=== PATIENT | female | born 1940 | race Caucasian/White ===

== ENCOUNTER → 2017-04-08 | Outpatient (CLI) | payer OTHER ==
[~2017-04-08] MED LIST: AMLO-110 PO; ASCO100061 PO; ASPI1TAB83 PO; CHOL100010 PO; LEVO75TA PO; METO-452 PO
== END | disposition home or self-care (01) ==
LOC: C.MAMM 07:59
PROVIDERS: ATTEND Family Medicine
DX: M85.88 Other specified disorders of bone density and structure, other site (principal); Z13.820 Encounter for screening for osteoporosis

== ENCOUNTER → 2017-04-09 | Outpatient (CLI) | payer OTHER ==
--- NOTE | 2017-04-09 11:00 | DIAGNOSTIC IMAGING REPORT ---
RIGHT HIP UNILATERAL 2 VIEWS CLINICAL HISTORY: M25.551 Right hip [id number] Right pain COMPARISON: None. DISCUSSION: The bones and joint spaces appear intact. There is no evidence of fracture, dislocation or bony disease. There is no evidence for soft tissue swelling. IMPRESSION: Negative study. Electronically signed by: Ag Douglas M.D. 04/09/2017 10:59 AM Dictated Date/Time: 04/09/2017 10:58 AM
--- NOTE | 2017-04-09 11:02 | DIAGNOSTIC IMAGING REPORT ---
SINGLE VIEW PELVIS CLINICAL HISTORY: Right hip pain. FINDINGS: An AP pelvic radiograph is obtained. No prior studies are available for comparison at the time of dictation. The skeletal structures are osteopenic. No fracture is identified in the hips or bony pelvis. The joint spaces of the hips appear maintained. Minimal sclerotic change is noted in the sacroiliac joints. Small enthesophytes arise from the anterior superior iliac spine bilaterally. The overlying soft tissues are normal as imaged. There is a nonobstructed abdominal bowel gas pattern. IMPRESSION: No acute abnormality. Electronically signed by: Andrea Berrios M.D. 04/09/2017 11:00 AM Dictated Date/Time: 04/09/2017 10:59 AM
== END | disposition home or self-care (01) ==
LOC: C.RADBC 10:30
PROVIDERS: ATTEND Family Medicine
DX: M25.551 Pain in right hip (principal)

== ENCOUNTER → 2017-07-25 | Outpatient (CLI) | payer OTHER, BC ==
[~2017-07-25] MED LIST changes: -METO-452 PO; +METO1TAB66 PO
[2017-07-25 17:46] LABS: BASO % 0.3 %; BASO ABS # 0.03 K/uL (0-0.2); COMPLETE YES; EOS % 3.7 %; HEMATOCRIT 39.6 % (37-47); IG% 0.2 %; LYMPH % 34.3 %; LYMPH ABS # 3.23 K/uL (1.2-3.4); MEAN CELL VOLUME 91.9 fL (80-100); MEAN CORPUSCULAR HEMOGLOBIN 30.6 pg (25-34); MEAN CORPUSCULAR HGB CONC 33.3 g/dl (32-36); MEAN PLATELET VOLUME 10.9 fL (7.4-10.4); MONO % 8.8 %; NEUT % 52.7 %; PLATELET COUNT 262 K/uL (130-400); RED BLOOD COUNT 4.31 M/uL (4.2-5.4); URINE APPEARANCE CLEAR (CLEAR); URINE BILIRUBIN NEG (NEG); URINE COLOR YELLOW; URINE EPITHELIAL CELL AUTO >30 /lpf (0-5); URINE NITRITE NEG (NEG); URINE SPECIFIC GRAVITY 1.029 (1.000-1.030); UROBILINOGEN NEG (NEG); WHITE BLOOD COUNT 9.43 K/uL (4.8-10.8)
[2017-07-25 17:54] LABS: MANUAL MICROSCOPIC REQUIRED? NO; REVIEW REQ? NO
[2017-07-25 18:04] LABS: ALT/SGPT 56 U/L (12-78); AST/SGOT 47 U/L (15-37); BLOOD UREA NITROGEN 29 mg/dl (7-18); BUN/CREATININE RATIO 23.8 (10-20); CALCIUM 9.3 mg/dl (8.5-10.1); CARBON DIOXIDE 30 mmol/L (21-32); CHLORIDE 105 mmol/L (98-107); GLUCOSE 100 mg/dl (70-99); POTASSIUM 4.3 mmol/L (3.5-5.1); SODIUM 142 mmol/L (136-145)
[2017-07-25 18:14] LABS: ALB/GLOB RATIO 0.9 (0.9-2); ALKALINE PHOSPHATASE 113 U/L (45-117)
[2017-07-26 06:17] LABS: ESTIMATED AVERAGE GLUCOSE 120 mg/dl; HA1C FLAG Normal (Normal)
== END | disposition home or self-care (01) ==
LOC: C.LAB1850 17:15
PROVIDERS: ATTEND Nurse Practitioner Adult Health
DX: I10 Essential (primary) hypertension (principal); R73.03 Prediabetes; R10.9 Unspecified abdominal pain; E03.9 Hypothyroidism, unspecified; R30.0 Dysuria

== ENCOUNTER → 2018-06-23 | Outpatient (CLI) | payer OTHER, BC ==
[~2018-06-23] MED LIST changes: -AMLO-110 PO; +AMLO5TAB3 PO; +METO-452 PO; -METO1TAB66 PO
[2018-06-23 10:33] LABS: BASO % 0.5 %; BASO ABS # 0.04 K/uL (0-0.2); EOS % 5.2 %; EOS ABS # 0.45 K/uL (0-0.5); HEMATOCRIT 41.4 % (37-47); HEMOGLOBIN 13.6 g/dL (12.0-16.0); IG# 0.02 K/uL (0.00-0.02); LYMPH % 30.9 %; LYMPH ABS # 2.67 K/uL (1.2-3.4); MEAN CELL VOLUME 92.4 fL (80-100); MEAN CORPUSCULAR HEMOGLOBIN 30.4 pg (25-34); MEAN CORPUSCULAR HGB CONC 32.9 g/dl (32-36); MEAN PLATELET VOLUME 11.4 fL (7.4-10.4); MONO % 8.8 %; MONO ABS # 0.76 K/uL (0.11-0.59); NEUT % 54.4 %; NEUT ABS # 4.71 K/uL (1.4-6.5); PLATELET COUNT 228 K/uL (130-400); RED CELL DISTRIBUTION WIDTH CV 12.7 % (11.5-14.5); RED CELL DISTRIBUTION WIDTH SD 42.9 fL (36.4-46.3); WHITE BLOOD COUNT 8.65 K/uL (4.8-10.8)
[2018-06-23 11:03] LABS: ALBUMIN 3.6 gm/dl (3.4-5.0); ALKALINE PHOSPHATASE 70 U/L (45-117); ALT/SGPT 30 U/L (12-78); AST/SGOT 26 U/L (15-37); BLOOD UREA NITROGEN 23 mg/dl (7-18); CALCIUM 9.1 mg/dl (8.5-10.1); CARBON DIOXIDE 31 mmol/L (21-32); CHOLESTEROL 175 mg/dl (0-200); CREATININE 1.04 mg/dl (0.60-1.20); GLUCOSE 123 mg/dl (70-99); LDL CHOLESTEROL CALCULATED 102 mg/dl; LIPASE 186 U/L (73-393); POTASSIUM 3.9 mmol/L (3.5-5.1); SODIUM 136 mmol/L (136-145); TOTAL PROTEIN 7.6 gm/dl (6.4-8.2)
== END | disposition home or self-care (01) ==
LOC: C.LAB1850 09:21
PROVIDERS: ATTEND Nurse Practitioner Family
DX: I10 Essential (primary) hypertension (principal); E03.9 Hypothyroidism, unspecified; E55.9 Vitamin D deficiency, unspecified; R73.03 Prediabetes; R10.9 Unspecified abdominal pain

== ENCOUNTER → 2018-06-23 | Outpatient (CLI) | payer OTHER, BC ==
--- NOTE | 2018-06-23 12:15 | DIAGNOSTIC IMAGING REPORT ---
CT SCAN OF THE ABDOMEN AND PELVIS WITHOUT CONTRAST CLINICAL HISTORY: DIVERTICULITIS LEFT LOWER QUADRANT ABDOMINAL PAIN COMPARISON STUDY: No previous studies for comparison. TECHNIQUE: CT scan of the abdomen and pelvis was performed from the lung bases to the proximal femurs. Images are reviewed in the axial, sagittal, and coronal planes. IV contrast was not administered for this examination. A dose lowering technique was utilized adhering to the principles of ALARA. CT DOSE: 918.51 mGycm FINDINGS: Lower chest: There are minor dependent atelectatic changes present. Liver: The unenhanced liver is normal in size, contour, and attenuation. There is no intrahepatic biliary ductal dilatation. Gallbladder: Cholelithiasis Spleen: Normal in size and attenuation. Pancreas: Unremarkable. Adrenal glands: Unremarkable. Kidneys: No renal, ureteral, or bladder calculi are visualized. Bowel: There are no transition zones indicate bowel obstruction. The appendix appears normal. There is colonic diverticulosis. There are no acute peridiverticular inflammatory changes. Peritoneum: There is no intraperitoneal free air or abdominal ascites. Vasculature: The abdominal aorta is normal in course and caliber. Adenopathy: None. Pelvic viscera: The bladder, and pelvic viscera are unremarkable. Skeletal structures: No destructive osseous lesions are seen. IMPRESSION: 1. Cholelithiasis 2. No evidence of bowel obstruction. No evidence of free air 3. Normal appendix 4. Diverticulosis. No evidence of acute diverticulitis Electronically signed by: Sharan Powell M.D. 06/23/2018 12:14 PM Dictated Date/Time: 06/23/2018 12:10 PM
== END | disposition home or self-care (01) ==
LOC: C.CTS 10:08
PROVIDERS: ATTEND Nurse Practitioner Family
DX: R10.9 Unspecified abdominal pain (principal)

== ENCOUNTER → 2018-06-24 | Outpatient (CLI) | payer OTHER, BC | END | disposition home or self-care (01) | LOC: C.LABPBG 14:24 | PROVIDERS: ATTEND Nurse Practitioner Family | DX: R10.9 Unspecified abdominal pain (principal) ==

== ENCOUNTER → 2018-07-17 | Outpatient (CLI) | payer OTHER, BC | END | disposition home or self-care (01) | LOC: C.LABSPEC 16:41 | PROVIDERS: ATTEND Nurse Practitioner Family | DX: R39.9 Unspecified symptoms and signs involving the genitourinary system (principal) ==

== ENCOUNTER → 2018-07-18 | Outpatient (CLI) | payer OTHER, BC ==
--- NOTE | 2018-07-18 16:27 | DIAGNOSTIC IMAGING REPORT ---
PELVIC COMPLETE NON OB HISTORY: 78 years-old Female R10.2 Pelvic pain in female acute generalized pelvic pain COMPARISON: CT abdomen and pelvis 06/23/2018 TECHNIQUE: Multiple real-time sonographic images of the deep pelvic structures were obtained transabdominally and transvaginally assessing grayscale appearance, color and spectral flow FINDINGS: TRANSABDOMINAL: Pelvic structures are not well seen. TRANSVAGINAL: Retroflexed uterus measures 8.1 x 3.4 x 3.8 cm. Small nabothian cyst. Endometrium measures 0.25 cm in thickness, within normal limits for a postmenopausal patient. There is an echogenic polypoid lesion within the major canal measuring up to 1.0 x 0.6 x 0.7 cm demonstrating mild internal vascular flow. Additionally, there is a mild amount of fluid within the endometrial canal. There are several subendometrial calcifications about the uterine fundus. Ovaries are not diagnostically visualized. Trace free pelvic fluid adjacent to uterine fundus. Transvaginal portion of the exam was reportedly limited secondary to patient pain. IMPRESSION: 1. Endometrial polyp measuring up to 1.0 cm is present along with a mild degree of fluid within the endometrial cavity. Further evaluation with gynecologic consultation and hysteroscopy recommended. 2. Nonvisualization of the ovaries. 3. Trace free pelvic fluid of unknown etiology. The above report was generated using voice recognition software. It may contain grammatical, syntax or spelling errors. Electronically signed by: Sung Parrish M.D. 07/18/2018 4:26 PM Dictated Date/Time: 07/18/2018 4:21 PM
== END | disposition home or self-care (01) ==
LOC: C.ULTR 15:10
PROVIDERS: ATTEND Nurse Practitioner Family
DX: R10.2 Pelvic and perineal pain (principal); N84.0 Polyp of corpus uteri